=== PATIENT | female | born 1990 | race Caucasian/White ===

== ENCOUNTER → 2019-05-05 | Outpatient (CLI) | payer BC, MEDICAID, OTHER ==
[~2019-05-05] MED LIST: ACET1TAB43 PO; ASCO100083 PO; DOCU-143 PO; IBUP-1773 PO; PNV1CAPS PO; SERT50TA9 PO; VALA500T PO
--- NOTE | 2019-05-05 14:34 | Diagnostic Imaging Report ---
INDICATION: Palpable abnormality. TECHNIQUE: Multiple grayscale images were obtained over both breasts in various projections. FINDINGS: Targeted ultrasound of the right breast from the 12 to 2 o'clock position was performed. There is no evidence of a discrete solid or cystic mass. Targeted ultrasound of the left breast from the 10 to 12 o'clock position was performed. There is no evidence of a discrete solid or cystic mass. IMPRESSION: Negative limited bilateral breast ultrasound. ACR BI-RADS Category 1: Negative. Dictated by: Dictated on workstation # [id number]
== END ==
LOC: RAD 13:00
PROVIDERS: ATTEND Registered Nurse
DX: N63.0 Unspecified lump in unspecified breast (principal)
CPT/HCPCS: 76642